=== PATIENT | male | born 1995 | race Caucasian/White ===

== ENCOUNTER 2016-11-27 16:33 | Emergency (ER) | payer OTHER ==
[2016-11-27] MEDS ORDERED: methylPREDNISolone 125 MG* 2 ML VIAL IV ONE (16:45)
[2016-11-27] MEDS ORDERED: Famotidine TAB* 20 MG PO ONE (16:45)
[2016-11-27] MEDS ORDERED: NS 0.9% 1000 ML* 1,000 ML IV ONE (16:45)
[2016-11-27] MEDS ORDERED: diPHENhydraMINE IV* 50 MG/ML 1 ml VIAL (BENADRYL) IV ONE (16:45)
[2016-11-27] MEDS ORDERED: Famotidine IV* 10 MG/ML 2 ML (20 mg) IV SLOW PU ONE (16:46)
[2016-11-27] MEDS ORDERED: Ketorolac INJ* 30 MG/ML 1 ML VIAL IV ONE (17:57)
[2016-11-27 18:34] VITALS: BP 132/87
--- NOTE | 2016-11-27 21:31 | ED ---
Ronda Oliva Emily, scribed for Antwan Krueger MD on 11/27/16 at 1654 . Allergic Reaction/Systemic - HPI Summary HPI Summary: This patient is a 21 year old M presenting to [facility] accompanied by male with a chief complaint of an allergic reaction since approximately 30 minutes ago. He reports being stung by a bee. The patient rates the pain 0/10 in severity. Symptoms aggravated by nothing. Symptoms alleviated by nothing. Patient took Benadryl 50 mg TOOL MARKER. Patient reports diffuse erythema and pruritus. Patient denies SOB and difficulty swallowing. He reports being stung by bees before and not having a similar reaction. - History of Current Complaint Chief Complaint: EDAllergicReaction Hx Obtained From: Patient Onset/Duration: Sudden Onset, Started minutes ago - Approximately 30, Still Present Timing: Constant, Lasting Minutes Severity Initially: Mild Severity Currently: Mild Pain Intensity: 0 Pain Scale Used: 0-10 Numeric Location: Diffuse Character: Pruritus Aggravating Factor(s): Nothing Alleviating Factor(s): Nothing Associated Signs And Symptoms: Positive: Other: - Negative SOB. Negative: Difficulty Breathing - Related Hx Possible Reaction To: Insect - Allergies/Home Medications Allergies/Adverse Reactions: Allergies Allergy/AdvReac Type Severity Reaction Status Date / Time Bee Venom Allergy Anaphylatic Verified 11/27/16 16:36 Shock PMH/Surg Hx/FS Hx/Imm Hx Endocrine/Hematology History: Denies: Hx Diabetes Cardiovascular History: Denies: Hx Hypertension, Hx Pacemaker/ICD Respiratory History: Denies: Hx Asthma Sensory History: Denies: Hx Hearing Aid Psychiatric History: Denies: Hx Panic Disorder - Surgical History Surgery Procedure, Year, and Place: RT TIBIAL RODDING THEN REMOVED,WIDOM TEETH REMOVAL Infectious Disease History: No Infectious Disease History: Denies: Traveled Outside the [place] in Last 30 Days - Family History Known Family History: Negative: Cardiac Disease, Diabetes - Social History Alcohol Use: Rare Hx Substance Use: No Substance Use Type: Reports: None Hx Tobacco Use: No Review of Systems Negative: Fever Positive: Other - Negative difficulty swallowing Negative: Shortness Of Breath Positive: Other - Erythema, pruritus, allergic reaction bee sting All Other Systems Reviewed And Are Negative: Yes Physical Exam Triage Information Reviewed: Yes Vital Signs On Initial Exam: Initial Vitals Temp Pulse Resp BP Pulse Ox 99.5 F 108 18 149/83 99 11/27/16 16:34 11/27/16 16:34 11/27/16 16:34 11/27/16 16:34 11/27/16 16:34 Vital Signs Reviewed: Yes Appearance: Positive: Well-Appearing, No Pain Distress Skin: Positive: Warm, Dry, Erythema @ - Diffuse, Other - Some urticaria Head/Face: Positive: Normal Head/Face Inspection Eyes: Positive: Normal ENT: Positive: Normal ENT inspection Neck: Positive: Supple, Nontender Respiratory/Lung Sounds: Positive: Clear to Auscultation, Breath Sounds Present Cardiovascular: Positive: RRR Abdomen Description: Positive: Nontender, Soft Bowel Sounds: Positive: Present Musculoskeletal: Positive: Normal Neurological: Positive: Normal, Sensory/Motor Intact, Alert, Oriented to Person Place, Time, CN Intact II-III Psychiatric: Positive: Affect/Mood Appropriate Diagnostics - Vital Signs Vital Signs Temp Pulse Resp BP Pulse Ox 11/27/16 16:37 99.5 F 108 18 149/83 99 11/27/16 16:34 99.5 F 108 18 149/83 99 - Laboratory Lab Statement: Any lab studies that have been ordered have been reviewed, and results considered in the medical decision making process. Re-Evaluation - Re-Evaluation First Eval Re-Evaluation Time: 17:55 Comment: Pateint c/o throat pain when swallowing. Allergic Reaction Course/Dx - Course Course Of Treatment: Mr. Jauregui was stung in the posterior pharynx by a presumed bee. Fortunately he did not have any local swelling (likely he was stung over the hard palate) but did develope diffuse urticaria. He took benadryl and we gave him additional medications here and observed him. He did well and was D/C'd with a script for an epipen. - Diagnoses Provider Diagnoses: Allergic reaction to bee sting Discharge - Discharge Plan Condition: Stable Disposition: HOME Prescriptions: Epinephrine [Epipen 2-Pepe] 0.3 mg IM ONCE #1 inj Patient Education Materials: General Allergic Reaction (ED) Referrals: [facility] [Primary Care Provider] - 3 Days The documentation as recorded by the Ronda peterson Emily accurately reflects the service I personally performed and the decisions made by me, Antwan Krueger MD.
== END 2016-11-27 18:36 | disposition home or self-care (01) ==
LOC: ED 16:33
DX: T63.441A Toxic effect of venom of bees, accidental (unintentional), initial encounter (principal); Y92.9 Unspecified place or not applicable
CPT/HCPCS: 96374; 96375; 99282; J1200; J1885; J2930